=== PATIENT | male | born 1970 | race Hispanic/Latino ===

== ENCOUNTER 2020-12-18 19:27 | Emergency (ER) | payer OTHER ==
[2020-12-18 19:55] LABS: Urine Blood Trace-intact (Negative); Urine Glucose Negative (Negative); Urine Protein Negative (Negative)
[2020-12-18 20:55] LABS: Urine Appearance CLEAR (Clear); Urine Bilirubin NEGATIVE (Negative); Urine Blood NEGATIVE (Negative); Urine Color YELLOW (Yellow); Urine Glucose NEGATIVE (Negative); Urine Protein NEGATIVE (Negative); Urine Urobilinogen 0.2 mg/dL (0.2-1.0)
[2020-12-18 21:04] LABS: Urine Microscopic Reflex NO UMIC
[2020-12-18 21:19] LABS: Urine Bacteria <20 /HPF (NONE SEEN); Urine RBC <5 /HPF (NONE SEEN)
--- NOTE | 2020-12-18 21:47 | RAD REPORT ---
EXAM DESCRIPTION: CT - Stone Protocol - 12/18/2020 9:34 pm CLINICAL HISTORY: Abdominal pain. COMPARISON: 2014 TECHNIQUE: Computed axial tomography of the abdomen pelvis was obtained without oral or IV contrast. Lack of IV and oral contrast limits evaluation of solid organs, bowel, and vessels. Coronal reformat maria eugenia images were obtained and reviewed. All CT scans are performed using dose optimization technique as appropriate and may include automated exposure control or mA/KV adjustment according to patient size. FINDINGS: Tiny bilateral renal calculi. No hydronephrosis. An ureteral calculus is not noted. A blad jonathan calculus is not present. The liver, spleen, pancreas and adrenals appear grossly normal There is no evidence of diverticulitis. The appendix appears normal Small right and small moderate left inguinal hernias containing fat. Small umbilical hernia contains IMPRESSION: Tiny bilateral nonobstructing renal calculi
[2020-12-18 22:15] LABS: Absolute Lymphocytes (CBC) 0.9 K/uL (0.7-4.9); Hematocrit 42.4 % (39.6-49.0); Lymphocytes % 12.8 % (15.3-44.8); MPV 9.5 fL (7.6-11.3)
[2020-12-18 22:31] LABS: Potassium 3.7 mmol/L (3.5-5.1)
[2020-12-18] MEDS ORDERED: ACETAMINOPHEN 500 MG TAB ONE (22:34)
--- NOTE | 2020-12-18 23:41 | ER ---
Nurse's Notes [facility] Name: Stanley Bowens Age: 50 yrs Sex: Male : 1970 Arrival Date: 12/18/2020 Time: 19:32 Bed 8 Private MD: Diagnosis: Coronavirus infection, unspecified Presentation: 12/18 19:41 Chief complaint: Patient states: low back pain, frequent urination with small amounts, bs2 hx of renal stones. Coronavirus screen: Client denies travel out of the [place] in the last 14 days. At this time, the client does not indicate any symptoms associated with coronavirus-19. Ebola Screen: Patient negative for fever greater than or equal to 101.5 degrees Fahrenheit, and additional compatible Ebola Virus Disease symptoms Patient denies exposure to infectious person. Patient denies travel to an Ebola-affected area in the 21 days before illness onset. No symptoms or risks identified at this time. Initial Sepsis Screen: Does the patient meet any 2 criteria?. Risk Assessment: Do you want to hurt yourself or someone else? Patient reports no desire to harm self or others. Onset of symptoms was December 15, 2020. 19:41 Method Of Arrival: Ambulatory bs2 19:41 Acuity: CHAR 3 bs2 19:46 Initial Sepsis Screen: Does the patient have a suspected source of infection? No. bs2 Patient's initial sepsis screen is negative. Triage Assessment: 19:42 General: Appears uncomfortable, well groomed, well developed, well nourished, Behavior bs2 is calm, cooperative, appropriate for age. Pain: Complains of pain in lumbar area, left low back, right mid back and right low back Pain currently is 9 out of 10 on a pain scale. Musculoskeletal: Circulation, motion, and sensation intact. Capillary refill < 3 seconds, Range of motion: intact in all extremities. Historical: - Allergies: 19:42 No Known Allergies; bs2 - Home Meds: 19:42 Flomax 0.4 mg Oral cap 1 cap once daily [Active]; acetaminophen-codeine 300-15 mg Oral bs2 tab 1 tab every 4-6 hours [Active]; atorvastatin 10 mg oral tab 1 tab once daily [Active]; tadalafil 20 mg oral tab 1 tab once daily [Active]; - PMHx: 19:42 Hypertensive disorder; Kidney stone; bs2 - PSHx: 19:42 None; bs2 - Immunization history:: Client reports having NOT received the Covid vaccine. Flu vaccine is not up to date. - Social history:: Smoking status: Patient denies any tobacco usage or history of. Screenin:00 Abuse screen: Denies threats or abuse. Nutritional screening: No deficits noted. ea Tuberculosis screening: No symptoms or risk factors identified. Fall Risk IV access (20 points). Assessment: 22:00 General: Appears uncomfortable, Behavior is appropriate for age. Neuro: Level of ea Consciousness is awake, alert, obeys commands, Oriented to person, place, time. Respiratory: Airway is patent Respiratory effort is even, unlabored, Respiratory pattern is regular, symmetrical. Derm: Skin is pink, warm \T\ dry. 23:50 Reassessment: Patient and/or family updated on plan of care and expected duration. Pain ea level reassessed. Patient is alert, oriented x 3, equal unlabored respirations, skin warm/dry/pink. Discharge instruction given to patient verbalized the understanding of instructions, left ED ambulatory tolerating well. Vital Signs: 19:46 BP 165 / 99; Pulse 96; Resp 19; Temp 101.6(O); Pulse Ox 99% on R/A; Weight 111.13 kg bs2 (R); Height 5 ft. 8 in. (172.72 cm); Pain 9/10; 22:57 BP 137 / 81; Pulse 89; Resp 20; Temp 101.1; Pulse Ox 92% ; ea 23:49 BP 131 / 78; Pulse 80; Resp 19; Temp 99.6; Pulse Ox 95% ; ea 19:46 Body Mass Index 37.25 (111.13 kg, 172.72 cm) bs2 ED Course: 19:32 Patient arrived in ED. cf2 19:42 Triage completed. bs2 19:42 Arm band placed on left wrist. bs2 21:09 Agustina Love FNP-C is [facility]. kb 21:09 Vasile Rodriguez MD is Attending Physician. kb 21:35 CT Stone Protocol In Process Unspecified. EDMS 21:59 Aga Yougn, FER is Primary Nurse. ea 22:00 Patient has correct armband on for positive identification. Bed in low position. Call ea light in reach. Side rails up X2. 22:00 Inserted saline lock: 20 gauge in right antecubital area, using aseptic technique. ea Blood collected. 23:49 No provider procedures requiring assistance completed. IV discontinued, intact, ea bleeding controlled, No redness/swelling at site. Pressure dressing applied. Administered Medications: 22:14 Drug: Tylenol 1000 mg Route: PO; ea 23:30 Follow up: Response: No adverse reaction ea Outcome: 23:40 Discharge ordered by MD. nugent 23:50 Discharged to home ambulatory, with family. ea 23:50 Condition: stable 23:50 Discharge instructions given to patient, Instructed on discharge instructions, follow up and referral plans. Demonstrated understanding of instructions, follow-up care. 23:51 Patient left the ED. ea Signatures: Dispatcher [employer] EDMS Agustina Love, GEMINI-C HAND SURGEON-Aga Rosales, RN RN Duncan Gray cf2 Delmis Tiwari RN RN bs2
--- NOTE | 2020-12-18 23:41 | EDPHYS ---
Physician Documentation [facility] Name: Stanley Bowens Age: 50 yrs Sex: Male : 1970 Arrival Date: 12/18/2020 Time: 19:32 Bed 8 Private MD: ED Physician Vasile Rodriguez HPI: 12/18 23:35 This 50 yrs old Male presents to ER via Ambulatory with complaints of Back kb Pain, BODY ACHES, Urinary Incontinence, Fever. 23:35 The patient complains of pain in the right flank. The pain does not radiate. Onset: The kb symptoms/episode began/occurred 4 day(s) ago. Modifying factors: The symptoms are alleviated by nothing. the symptoms are aggravated by nothing. Associated signs and symptoms: Pertinent positives: fever, urinary frequency. Severity of pain: At its worst the pain was mild moderate in the emergency department the pain is unchanged. The patient has not experienced similar symptoms in the past. The patient has not recently seen a physician. Ports flank pain low back pain urinary frequency since Tuesday. States symptoms are getting any better so he came in today. Also reports fever slight cough runny nose body aches and headaches. Historical: - Allergies: 19:42 No Known Allergies; bs2 - Home Meds: 19:42 Flomax 0.4 mg Oral cap 1 cap once daily [Active]; acetaminophen-codeine 300-15 mg Oral bs2 tab 1 tab every 4-6 hours [Active]; atorvastatin 10 mg oral tab 1 tab once daily [Active]; tadalafil 20 mg oral tab 1 tab once daily [Active]; - PMHx: 19:42 Hypertensive disorder; Kidney stone; bs2 - PSHx: 19:42 None; bs2 - Immunization history:: Client reports having NOT received the Covid vaccine. Flu vaccine is not up to date. - Social history:: Smoking status: Patient denies any tobacco usage or history of. ROS: 23:39 Cardiovascular: Negative for chest pain, palpitations, and edema. kb 23:39 Constitutional: Positive for body aches, chills, fatigue, fever, malaise. 23:39 ENT: Positive for rhinorrhea. 23:39 Respiratory: Positive for cough, Negative for dyspnea on exertion, hemoptysis, orthopnea, pleurisy, shortness of breath, sputum production, wheezing. 23:39 : Positive for flank pain, urinary frequency. 23:39 Neuro: Positive for headache. 23:39 All other systems are negative. Exam: 23:39 Constitutional: This is a well developed, well nourished patient who is awake, alert, kb and in no acute distress. Head/Face: Normocephalic, atraumatic. ENT: Moist Mucous membranes Cardiovascular: Regular rate and rhythm with a normal S1 and S2. No gallops, murmurs, or rubs. No pulse deficits. Respiratory: Respirations even and unlabored. No increased work of breathing, no retractions or nasal flaring. Abdomen/GI: Soft, non-tender. No distention Skin: Warm, dry with normal turgor. Normal color. MS/ Extremity: Pulses equal, no cyanosis. Neurovascular intact. Full, normal range of motion. Neuro: Awake and alert, GCS 15, oriented to person, place, time, and situation. Moves all extremities. Normal gait. Psych: Awake, alert, with orientation to person, place and time. Behavior, mood, and affect are within normal limits. 23:39 Back: CVA tenderness, that is mild, is noted on the right. Vital Signs: 19:46 BP 165 / 99; Pulse 96; Resp 19; Temp 101.6(O); Pulse Ox 99% on R/A; Weight 111.13 kg bs2 (R); Height 5 ft. 8 in. (172.72 cm); Pain 9/10; 22:57 BP 137 / 81; Pulse 89; Resp 20; Temp 101.1; Pulse Ox 92% ; ea 23:49 BP 131 / 78; Pulse 80; Resp 19; Temp 99.6; Pulse Ox 95% ; ea 19:46 Body Mass Index 37.25 (111.13 kg, 172.72 cm) bs2 MDM: 21:30 Patient medically screened. kb 23:34 Data reviewed: vital signs, nurses notes. Data interpreted: Pulse oximetry: on room air kb is 92 %. Interpretation: normal. Counseling: I had a detailed discussion with the patient and/or guardian regarding: the historical points, exam findings, and any diagnostic results supporting the discharge/admit diagnosis, lab results, radiology results, the need for outpatient follow up, a family practitioner, to return to the emergency department if symptoms worsen or persist or if there are any questions or concerns that arise at home. 12/18 19:49 Order name: Urinalysis; Complete Time: 21:31 bs2 12/18 19:49 Order name: Urine Microscopic Only; Complete Time: 21:31 bs2 12/18 19:55 Order name: Urine Dipstick-Ancillary; Complete Time: 21:02 EDMS 12/18 21:38 Order name: Basic Metabolic Panel; Complete Time: 22:39 kb 12/18 21:38 Order name: CBC with Diff; Complete Time: 22:25 kb 12/18 21:53 Order name: Flu kb 12/18 21:02 Order name: CT Stone Protocol; Complete Time: 21:48 kb 12/18 21:38 Order name: IV Saline Lock; Complete Time: 21:59 kb 12/18 21:38 Order name: Labs collected and sent; Complete Time: 21:59 kb 12/18 21:53 Order name: Influenza Screen (A ; Complete Time: 22:39 EDMS 12/18 23:37 Order name: SARS-COV-2 RT PCR; Complete Time: 23:40 EDMS Administered Medications: 22:14 Drug: Tylenol 1000 mg Route: PO; ea 23:30 Follow up: Response: No adverse reaction ea Disposition: 12/19 04:14 Co-signature as Attending Physician, Vasile Rodriguez MD. [email or web address] Disposition Summary: 12/18/20 23:40 Discharge Ordered Location: Home kb Condition: Stable kb Diagnosis - Coronavirus infection, unspecified kb Followup: kb - With: Emergency Department - When: As needed - Reason: Worsening of condition Followup: kb - With: Private Physician - When: 2 - 3 days - Reason: Recheck today's complaints, Continuance of care, Re-evaluation by your physician Discharge Instructions: - Discharge Summary Sheet kb - Viral Respiratory Infection, [id number] kb - COVID-19 kb Forms: - Medication Reconciliation Form kb - Thank You Letter kb - Antibiotic Education kb - Prescription Opioid Use kb Signatures: Dispatcher [employer] EDMS Agustina Love, SPRAYER MACHINE-C SPRAYER MACHINE-Vasile Tracey MD MD pkl Aga Young, RN Delmis Roa ea RN RN bs2 Corrections: (The following items were deleted from the chart) 12/18 22:33 21:53 CORONAVIRUS+MR.LAB.BRZ ordered. EDMS EDMS
[2020-12-19 02:14] VITALS: BP 131/78; TEMP 99.6; O2SAT 95
== END 2020-12-18 23:51 | disposition home or self-care (01) ==
LOC: ER 19:27
DX: U07.1 COVID-19 (principal); I10 Essential (primary) hypertension; Z87.442 Personal history of urinary calculi
CPT/HCPCS: 85025; 80048; 36415; 87804 ×2; 76377; 74176; 99284; U0003; 81003; 81015